=== PATIENT | female | born 1990 | race Asian ===

== ENCOUNTER 2016-07-21 18:20 | Emergency (ER) | payer MEDICAID, OTHER ==
[~2016-07-21] VITALS: Ht 152.4 cm; Wt 42.2 kg
[~2016-07-21 18:20] MED LIST: ESOM20CA PO
[2016-07-21 18:26] VITALS: Ht 152.4 cm; Wt 42.2 kg
[2016-07-21] MEDS ORDERED: KETOROLAC 30 MG INJ IV STA (19:39)
[2016-07-21] MEDS ORDERED: ONDANSETRON 4 MG INJ IV STA (19:39)
[2016-07-21] MEDS ORDERED: SOD CHLORIDE 0.9% 1,000 ML IV STA (19:39)
[2016-07-21 19:53] LABS: ADD UMIC YES; URINE BILIRUBIN (Dip) NEGATIVE (NEGATIVE); URINE BLOOD (Dip) NEGATIVE (NEGATIVE); URINE COLOR LT. YELLOW (YELLOW); URINE GLUCOSE (Dip) NEGATIVE (NEGATIVE); URINE KETONES (Dip) NEGATIVE (NEGATIVE); URINE LEUKOCYTE ESTERASE (Dip) 1+ (NEGATIVE); URINE NITRITE (Dip) POSITIVE (NEGATIVE); URINE TOTAL PROTEIN (Dip) NEGATIVE (NEGATIVE); URINE UROBILINOGEN (Dip) 0.2 E.U./dL (0.1-1.0)
[2016-07-21 20:04] LABS: ADD SCAN DIFF NO
[2016-07-21 20:10] LABS: BASOPHILS % 0.5 % (0.0-2.0); EOSINOPHILS # 0.2 10^3/ul (0.0-0.5); EOSINOPHILS % 3.3 % (0.0-7.0); HEMATOCRIT 40.6 % (37.0-47.0); HEMOGLOBIN 14.1 g/dl (12.0-16.0); LYMPHOCYTES # 2.2 10^3/ul (0.8-2.9); MEAN CORPUSCULAR HGB CONC 34.7 g/dl (32.0-37.0); MEAN CORPUSCULAR VOLUME 95.1 fl (82.0-101.0); MEAN PLATELET VOLUME 8.6 fl (7.4-10.4); MONOCYTE # 0.5 10^3/ul (0.3-0.9); NEUTROPHIL # 3.4 10^3/ul (1.6-7.5); NEUTROPHILS % 53.9 % (39.0-77.0); PLATELET COUNT 287 10^3/UL (140-415); RED BLOOD COUNT 4.27 10^6/ul (4.20-5.40); RED CELL DISTRIBUTION WIDTH 12.1 % (11.5-14.5); WHITE BLOOD COUNT 6.4 10^3/ul (4.8-10.8)
[2016-07-21 20:21] LABS: BACTERIA,URINE MODERATE; URINE RBCS NONE SEEN /HPF (0)
[2016-07-21 20:29] LABS: ALBUMIN 4.4 g/dl (3.3-4.9); POTASSIUM 3.8 mmol/L (3.5-5.1)
--- NOTE | 2016-07-21 20:30 | RADRPT ---
PROCEDURE: US Abdomen. CLINICAL INDICATION: Abdominal pain. TECHNIQUE: Multiple real-time images were acquired of the patient's right upper quadrant utilizing a high resolution transducer. The images were reviewed on a high-resolution PACS workstation. COMPARISON: 04/16/2015 FINDINGS: The liver demonstrates normal echogenicity and size and no focal lesions are seen. The liver measure s 14.3 cm in size. No gallstones are identified within the gallbladder. There is no pericholecystic fluid. The gallbladder wall measures 1.4 mm in size. No intrahepatic biliary dilatation is seen. The common bile duct measures 3 mm in maximal dimension. The visualized portions of the pancreas ar e unremarkable. No free fluid is identified. The right kidney is of normal size, and demonstrate normal echogenicity and morphology. The right k idney measures 10.2 cm. There are is no dilatation of the right collecting system. There are no pe rinephric fluid collections. There are no areas of increased echogenicity to suggest nephrolithiasi s. IMPRESSION: Unremarkable right upper quadrant ultrasound. RPTAT: HPNM Physician Alcides Date Time Electronically viewed and signed by Physician Alcides on 07/21/2016 20:30 /
[2016-07-21 20:31] LABS: ALBUMIN/GLOBULIN RATIO 1.29; BILIRUBIN,INDIRECT 0.3 mg/dl (0-1.1); BILIRUBIN,TOTAL 0.3 mg/dl (0.2-1.3); CREATININE 0.69 mg/dl (0.44-1.00); TOTAL PROTEIN 7.8 g/dl (6.1-8.1)
[2016-07-21 20:32] LABS: CALCIUM 9.7 mg/dl (8.4-10.2)
[2016-07-21] MEDS ORDERED: NITR-58 PO (20:46)
[2016-07-21] MEDS ORDERED: ACET500C5 PO (20:47)
--- NOTE | 2016-07-21 21:01 | ERD ---
ER Documentation Chief Complaint Date/Time DATE: 07/21/16 TIME: 20:54 Chief Complaint mid upper abd pain since 4pm +nausea. states was here last week no rx. HPI Patient is a 25-year-old female who presents emergency department with mid upper abdominal pain since 4 PM today. Patient states pain is primarily in the epigastric region and radiates to her right upper quadrant. Patient states her current pain level is a 7 out of 10. Patient describes the pain to be episodic in nature and pressure-like. Patient states she had 2 episodes of nonbloody nonbilious vomiting. Patient denies any diarrhea. Patient denies any fever, chills, chest pain, shortness of breath, pain with urination or hematuria. Patient states her last menstrual period was on 07/16/2016. ROS All systems reviewed and are negative except as per history of present illness. Medications Home Meds Active Scripts Acetaminophen* (Tylophen*) 500 Mg Capsule, 1 CAP PO Q6H Y for PAIN AND OR ELEVATED TEMP, #20 CAP Prov:SHEYLA OLIVAREZ PA-C 07/21/16 Nitrofurantoin Monohyd Macrocr* (Macrobid*) 100 Mg Capsr, 100 MG PO BID for 5 Days, CAP Prov:SHEYLA OLIVAREZ PA-C 07/21/16 Esomeprazole Mag Trihydrate (Nexium) 20 Mg Capsule., 20 MG PO DAILY, #14 CAP Prov:SHANNAN URBAN MD 04/16/15 Allergies Allergies: Coded Allergies: No Known Allergy (Unverified , 07/21/16) PMhx/Soc Medical and Surgical Hx: pt denies Medical Hx, pt denies Surgical Hx Hx Alcohol Use: No Hx Substance Use: No Hx Tobacco Use: No FmHx Family History: No diabetes Physical Exam Vitals Vital Signs Date Time Temp Pulse Resp B/P Pulse Ox O2 Delivery O2 Flow Rate FiO2 07/21/16 21:57 98.6 57 16 112/79 99 07/21/16 18:26 98.6 71 18 120/80 99 Physical Exam GENERAL: Well-developed, well-nourished female. Appears in no acute distress. HEAD: Normocephalic, atraumatic. EYES: Pupils are equally reactive bilaterally. EOMs grossly intact. No conjunctival erythema. ENT: Moist mucous membranes. No uvula deviation. No kissing tonsils. NECK: Supple. No meningismus. Normal range of motion of the neck. LUNG: Clear to auscultation bilaterally. No rhonchi, wheezing, rales or coarse breath sounds. HEART: Regular rate and rhythm. No murmurs, rubs or gallops. ABDOMEN: No scars, ecchymosis or rashes noted. Soft, and nondistended. Tender to palpation in the epigastric and right upper quadrant. Positive bowel sounds in all four quadrants. No rebound tenderness, no guarding. (-) McBurney's point tenderness. No CVA tenderness. BACK: No midline tenderness. EXTREMITIES: Equal pulses bilaterally. No peripheral clubbing, cyanosis or edema. No unilateral leg swelling. NEUROLOGIC: Alert and oriented. Moving all four extremities without any difficulty. Normal speech. Steady gait. SKIN: Normal color. Warm and dry. No rashes or lesions. Result Diagram: 07/21/16 1950 07/21/16 [facility] Results 24 hrs Laboratory Tests Test 07/21/16 19:40 07/21/16 19:50 Urine Amorphous Urates OCCASIONAL Urine Bacteria MODERATE Urine Bilirubin NEGATIVE Urine Clarity SLIGHTLY CLOUDY Urine Color LT. YELLOW Urine Epithelial Cells OCCASIONAL Urine Glucose NEGATIVE% Urine Hemoglobin NEGATIVE Urine Ketones NEGATIVE Urine Leukocyte Esterase 1+ Urine Microscopic RBC NONE SEEN/HPF Urine Microscopic WBC 2-5/HPF Urine Nitrite POSITIVE Urine Specific [place] 1.010 Urine Total Protein NEGATIVE Urine Urobilinogen 0.2 E.U./dL Urine pH 7.0 Alanine Aminotransferase (ALT/SGPT) 43IU/L Albumin 4.4g/dl Albumin/Globulin Ratio 1.29 Alkaline Phosphatase 53IU/L Anion Gap 21 Aspartate Amino Transf (AST/SGOT) 30IU/L Basophils # 0.010^3/ul Basophils % 0.5% Blood Urea Nitrogen 11mg/dl Calcium Level 9.7mg/dl Carbon Dioxide Level 28mmol/L Chloride Level 101mmol/L Creatinine 0.69mg/dl Direct Bilirubin 0.00mg/dl Eosinophils # 0.210^3/ul Eosinophils % 3.3% Globulin 3.40g/dl Glucose Level 92mg/dl Hematocrit 40.6% Hemoglobin 14.1g/dl Indirect Bilirubin 0.3mg/dl Lipase 116U/L Lymphocytes # 2.210^3/ul Lymphocytes % 34.0% Mean Corpuscular Hemoglobin 33.0pg Mean Corpuscular Hemoglobin Concent 34.7g/dl Mean Corpuscular Volume 95.1fl Mean Platelet Volume 8.6fl Monocytes # 0.510^3/ul Monocytes % 8.0% Neutrophils # 3.410^3/ul Neutrophils % 53.9% Nucleated Red Blood Cells # 0.010^3/ul Nucleated Red Blood Cells % 0.0/100WBC Platelet Count 13526^3/UL Potassium Level 3.8mmol/L Red Blood Count 4.2710^6/ul Red Cell Distribution Width 12.1% Sodium Level 146mmol/L Total Bilirubin 0.3mg/dl Total Protein 7.8g/dl White Blood Count 6.410^3/ul Current Medications Medications (Trade) Dose Ordered Sig/Aisha Route PRN Reason Start Time Stop Time Status Last Admin Dose Admin Sodium Chloride (NS) 1,000 ml @ 1,000 mls/hr Q1H STAT IV 07/21/16 19:39 07/21/16 20:38 DC 07/21/16 19:53 Ondansetron HCl (Zofran Inj) 4 mg ONCE STAT IV 07/21/16 19:39 07/21/16 19:41 DC 07/21/16 19:52 Ketorolac Tromethamine (Toradol) 30 mg ONCE STAT IV 07/21/16 19:39 07/21/16 19:42 DC 07/21/16 19:52 Procedures/MDM ED COURSE: The patient was stable throughout ED course. I kept the patient and/or family informed of laboratory and diagnostic imaging results throughout the ED course. DIAGNOSTIC IMAGING: Read by radiologist. DIAGNOSTIC IMAGING REPORT Patient: TARA LOPEZ : 1990 Age: 25 Sex: F MR #: [id number] DOS: 07/21/16 193 Ordering MD: SHEYLA OLIVAREZ PA-C Location: [facility] Room/Bed: PROCEDURE: US Abdomen. CLINICAL INDICATION: Abdominal pain. TECHNIQUE: Multiple real-time images were acquired of the patient's right upper quadrant utilizing a high resolution transducer. The images were reviewed on a high-resolution PACS workstation. COMPARISON: 04/16/2015 FINDINGS: The liver demonstrates normal echogenicity and size and no focal lesions are seen. The liver measures 14.3 cm in size. No gallstones are identified within the gallbladder. There is no pericholecystic fluid. The gallbladder wall measures 1.4 mm in size. No intrahepatic biliary dilatation is seen. The common bile duct measures 3 mm in maximal dimension. The visualized portions of the pancreas are unremarkable. No free fluid is identified. The right kidney is of normal size, and demonstrate normal echogenicity and morphology. The right kidney measures 10.2 cm. There are is no dilatation of the right collecting system. There are no perinephric fluid collections. There are no areas of increased echogenicity to suggest nephrolithiasis. IMPRESSION: Unremarkable right upper quadrant ultrasound. RPTAT: HPNM Physician Alcides Date Time Electronically viewed and signed by Seamus Ontiveros Physician on 07/21/2016 20 :30 / CC: SHEYLA OLIVAREZ PA-C MEDICATIONS GIVEN: IV fluids, morphine, Zofran Patient tolerated medication well with no adverse reactions. Patient reported improvement in pain. MEDICAL DECISION MAKING: This is a 25-year-old female who presents with epigastric and right upper quadrant pain since 4 PM today. Vital signs were reviewed. Patient is afebrile. CBC showed no evidence of systemic infection or severe anemia. CMP showed no evidence of electrolyte abnormalities, severe acidosis, alkalosis, renal failure , or liver disease. Lipase showed no evidence of acute pancreatitis. UA showed positive nitrates positive leukocyte esterase, positive microscopic WBCs. Urine test was negative. RUQ ultrasound was unremarkable. Upon reexamination, patient reported improvement in pain. At this time, patient's presentation is most consistent with epigastric pain of unknown etiology and UTI.. I have a much lower clinical concern for acute coronary syndrome, AAA, mesenteric ischemia, lower lobe pneumonia, DKA, bowel perforation, obstruction, cholecystitis, choledocholithiasis, ascending cholangitis, pancreatitis, nephrolithiasis, appendicitis, , ectopic . Unable to rule out PUD. PRESCRIPTIONS: Macrobid, Tylenol DISCHARGE: At this time, patient is stable for discharge and outpatient management. Patient provided with a copy of all labs and imaging performed today. I have instructed the patient to follow-up with his/her primary care physician in 1-2 days. I have advised the patient that she may need to follow up with GI specialist if she continues to have pain. I have instructed the patient to promptly return to the ER at any time for any new or worsening symptoms including increased pain, nausea, vomiting, diarrhea, fever, weakness or LOC. The patient and/or family expressed understanding of and agreement with this plan. All questions were answered. Home care instructions were provided. Departure Diagnosis: Primary Impression: UTI (urinary tract infection) Urinary tract infection type: site unspecified Hematuria presence: without hematuria Qualified Code: N39.0 - Urinary tract infection without hematuria, site unspecified Additional Impression: Abdominal pain Abdominal location: right upper quadrant Qualified Code: R10.11 - Right upper quadrant abdominal pain Condition: Stable Patient Instructions: Abdominal Pain, Understanding Urinary Tract Infections ( UTIs) Referrals: [facility] YOU HAVE RECEIVED A MEDICAL SCREENING EXAM AND THE RESULTS INDICATE THAT YOU DO NOT HAVE A CONDITION THAT REQUIRES URGENT TREATMENT IN THE EMERGENCY DEPARTMENT. FURTHER EVALUATION AND TREATMENT OF YOUR CONDITION CAN WAIT UNTIL YOU ARE SEEN IN YOUR DOCTORS OFFICE WITHIN THE NEXT 1-2 DAYS. IT IS YOUR RESPONSIBILITY TO MAKE AN APPOINTMENT FOR FOLOW-UP CARE. IF YOU HAVE A PRIMARY DOCTOR --you should call your primary doctor and schedule an appointment IF YOU DO NOT HAVE A PRIMARY DOCTOR YOU CAN CALL OUR PHYSICIAN REFERRAL HOTLINE AT IF YOU CAN NOT AFFORD TO SEE A PHYSICIAN YOU CAN CHOSE FROM THE FOLLOWING [facility] [address] [facility]. [facility] [address] [facility]. [facility] [address] [facility] [address] [facility]. [facility] [address] [facility]. [facility]. [address] [facility]. [facility] YOU HAVE RECEIVED A MEDICAL SCREENING EXAM AND THE RESULTS INDICATE THAT YOU DO NOT HAVE A CONDITION THAT REQUIRES URGENT TREATMENT IN THE EMERGENCY DEPARTMENT. FURTHER EVALUATION AND TREATMENT OF YOUR CONDITION CAN WAIT UNTIL YOU ARE SEEN IN YOUR DOCTORS OFFICE WITHIN THE NEXT 1-2 DAYS. IT IS YOUR RESPONSIBILITY TO MAKE AN APPOINTMENT FOR FOLOW-UP CARE. IF YOU HAVE A PRIMARY DOCTOR --you should call your primary doctor and schedule and appointment IF YOU DO NOT HAVE A PRIMARY DOCTOR YOU CAN CALL OUR PHYSICIAN REFERRAL HOTLINE AT . IF YOU CAN NOT AFFORD TO SEE A PHYSICIAN YOU CAN CHOSE FROM THE FOLLOWING [facility] INSTITUTIONS: [facility] [address] [place] [address] [facility] [address] [place] [address] [facility] [address] [place] [address] Additional Instructions: Abdominal pain recheck advised in 8 hours if pain persists. Patient was advised to return sooner for any new or worsening pain, nausea, vomiting, fever , chills. Return immediately if you have right lower quadrant pain. Call your primary care doctor TOMORROW for an appointment during the next 1-2 days.See the doctor sooner or return here if your condition worsens before your appointment time. SHEYLA OLIVAREZ PA-C Jul 21, 2016 21:01
[2016-07-21 21:57] VITALS: BP 112/79; PULSE 57; RESP 16; TEMP 98.6
== END 2016-07-21 21:58 | disposition home or self-care (01) ==
LOC: FTE 18:20
DX: N39.0 Urinary tract infection, site not specified (principal); R11.2 Nausea with vomiting, unspecified
CPT/HCPCS: 36415; 76705; 80053; 81001; 83690; 85025; 96361; 96374; 96375; 99285; J1885; J2405; J7030; 81003

== ENCOUNTER 2017-04-01 13:49 | Emergency (ER) | payer MEDICAID, OTHER ==
[~2017-04-01] VITALS: Ht 152.4 cm; Wt 44.0 kg
[~2017-04-01 13:49] MED LIST changes: +ACET500C5 PO; +NITR-58 PO
[2017-04-01 13:53] VITALS: Ht 152.4 cm; Wt 44.0 kg
[2017-04-01] MEDS ORDERED: KETOROLAC 30 MG INJ IM STA (14:43)
--- NOTE | 2017-04-01 16:18 | RADRPT ---
PROCEDURE: XR Hand. CLINICAL INDICATION: Hand pain. TECHNIQUE: Three views of the left hand were obtained. COMPARISON: No prior studies are available for comparison. FINDINGS: No acute fracture or dislocation is noted. Bone mineralization is normal. No significant soft tissue swelling is seen. IMPRESSION: 1. No acute fracture or dislocation is seen. RPTAT: HH .Hari Queen MD, Date Time Electronically viewed and signed by .Hari Queen MD, on 04/01/2017 16:18 .N/
[2017-04-01] MEDS ORDERED: IBUP400T22 PO (17:13)
--- NOTE | 2017-04-01 18:25 | ERD ---
ER Documentation Chief Complaint Chief Complaint LEFT HAND PAIN, BRACE IN PLACE, NO DEFORMITY OR SWELLING HPI 26-year-old female patient with no significant past medical history is a left- handed individual presents to the ED complaining of left hand pain that started intermittently for 1 week. 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 Reports that the base of her left thumb is an sharp pain and rates it a 8 out of 10. Denies any direct trauma or injury. Denies any fever, chills, loss of sensation, loss of range of motion, nausea, vomiting. ROS All systems reviewed and are negative except as per history of present illness. Medications Home Meds Active Scripts Ibuprofen* (Motrin*) 400 Mg Tab, 400 MG PO Q6, #30 TAB Prov:CARSON SOLIS PA-C 04/01/17 Acetaminophen* (Tylophen*) 500 Mg Capsule, 1 CAP PO Q6H Y for PAIN AND OR ELEVATED TEMP, #20 CAP Prov:SHEYLA OLIVAREZ PA-C 07/21/16 Nitrofurantoin Monohyd Macrocr* (Macrobid*) 100 Mg Capsr, 100 MG PO BID for 5 Days, CAP Prov:SHEYLA OLIVAREZ PA-C 07/21/16 Esomeprazole Mag Trihydrate (Nexium) 20 Mg Capsule.dr, 20 MG PO DAILY, #14 CAP Prov:SHANNAN URBAN MD 04/16/15 Allergies Allergies: Coded Allergies: No Known Allergy (Unverified , 04/01/17) PMhx/Soc Medical and Surgical Hx: pt denies Medical Hx, pt denies Surgical Hx Hx Alcohol Use: No Hx Substance Use: No Hx Tobacco Use: No Smoking Status: Never smoker Physical Exam Vitals Vital Signs Date Time Temp Pulse Resp B/P Pulse Ox O2 Delivery O2 Flow Rate FiO2 04/01/17 13:53 97.7 83 16 121/68 97 Physical Exam Const: [id number], well-nourished. In no acute distress. Head: Atraumatic, normocephalic Eyes: Normal Conjunctiva without injection ENT: Normal external ear, nose and mouth. Neck: Full range of motion. No meningismus. Resp: Clear to auscultation bilaterally. No wheezing, rhonchi, rales, or crackles. No accessory muscle use. No retractions. Cardio: Regular rate and rhythm, no murmurs Skin: No petechiae or rashes Back: No midline tenderness. No CVA tenderness. Ext: No cyanosis, or edema. Cap refill less than 2 seconds. Distal pulses intact bilaterally. Tenderness palpation of the left thumb space and left snuffbox. Full range of motion of the DIP, PIP, MCP joints bilaterally. Neur: Awake and alert. Normal gait and coordination. Muscle strength 5/5. Sensation intact bilaterally. Psych: Normal Mood and Affect Results 24 hrs Current Medications Medications (Trade) Dose Ordered Sig/Aisha Route PRN Reason Start Time Stop Time Status Last Admin Dose Admin Ketorolac Tromethamine (Toradol) 30 mg ONCE STAT IM 04/01/17 14:43 04/01/17 14:46 DC 04/01/17 15:31 Procedures/MDM This is 26-year-old female patient with no significant past medical history presents to the ED complaining of left hand pain. Patient is afebrile and nontoxic-appearing. Patient has normal vital signs. PROCEDURE: XR Hand. CLINICAL INDICATION: Hand pain. TECHNIQUE: Three views of the left hand were obtained. COMPARISON: No prior studies are available for comparison. FINDINGS: No acute fracture or dislocation is noted. Bone mineralization is normal. No significant soft tissue swelling is seen. IMPRESSION: 1. No acute fracture or dislocation is seen. Patient is placed in a left thumb spica splint. Splint Assessment: Neurovascularly intact pre and post splint placement with good fit. Differentials include hand sprain however since patient has left snuffbox tenderness, a scaphoid fracture cannot be ruled out. Patient's extremity symptoms have stabilized while they have been evaluated in the department and are appropriate for outpatient follow up. No evidence of fractures, dislocations , compartment syndrome, neurologic injury, vascular injury, open joint, open fracture, tendon laceration, septic arthritis, osteomyelitis, DVT, foreign body , or other emergent conditions. Discharge medications: Ibuprofen Follow up with primary care physician in 1-2 days for a referral to see an orthopedic physician. Instructed patient to return to the ED sooner for any worsening symptoms. Patient's questions were answered. Patient understood and agreed with discharge plan. Patient discharged stable. Departure Diagnosis: Primary Impression: Pain of hand Laterality: left Qualified Code: M79.642 - Pain of left hand Condition: Stable Patient Instructions: Sprain Hand Referrals: [facility] YOU HAVE RECEIVED A MEDICAL SCREENING EXAM AND THE RESULTS INDICATE THAT YOU DO NOT HAVE A CONDITION THAT REQUIRES URGENT TREATMENT IN THE EMERGENCY DEPARTMENT. FURTHER EVALUATION AND TREATMENT OF YOUR CONDITION CAN WAIT UNTIL YOU ARE SEEN IN YOUR DOCTORS OFFICE WITHIN THE NEXT 1-2 DAYS. IT IS YOUR RESPONSIBILITY TO MAKE AN APPOINTMENT FOR FOLOW-UP CARE. IF YOU HAVE A PRIMARY DOCTOR --you should call your primary doctor and schedule an appointment IF YOU DO NOT HAVE A PRIMARY DOCTOR YOU CAN CALL OUR PHYSICIAN REFERRAL HOTLINE AT IF YOU CAN NOT AFFORD TO SEE A PHYSICIAN YOU CAN CHOSE FROM THE FOLLOWING [facility] [address] [facility] [address] [facility] [address] [facility] [address] [facility] [facility] [address] [facility] [facility]. [address] [facility]. [facility] YOU HAVE RECEIVED A MEDICAL SCREENING EXAM AND THE RESULTS INDICATE THAT YOU DO NOT HAVE A CONDITION THAT REQUIRES URGENT TREATMENT IN THE EMERGENCY DEPARTMENT. FURTHER EVALUATION AND TREATMENT OF YOUR CONDITION CAN WAIT UNTIL YOU ARE SEEN IN YOUR DOCTORS OFFICE WITHIN THE NEXT 1-2 DAYS. IT IS YOUR RESPONSIBILITY TO MAKE AN APPOINTMENT FOR FOLOW-UP CARE. IF YOU HAVE A PRIMARY DOCTOR --you should call your primary doctor and schedule and appointment IF YOU DO NOT HAVE A PRIMARY DOCTOR YOU CAN CALL OUR PHYSICIAN REFERRAL HOTLINE AT . IF YOU CAN NOT AFFORD TO SEE A PHYSICIAN YOU CAN CHOSE FROM THE FOLLOWING [facility] INSTITUTIONS: [facility] [address] [place] [address] [facility] [address] [place] [address] [facility] [address] [place] [address] [facility] Urgent Care 7 a.m.- 11 p.m. Every Day of the Week NO APPOINTMENT OR AUTHORIZATION NEEDED [facility] Hours: Mon-Fri 9:00 AM - 5:00 PM Additional Instructions: Call your primary care doctor TOMORROW for an appointment during the next 2-3 days for a referral to see an orthopedic physician for further evaluation and treatment.See the doctor sooner or return here if your condition worsens before your appointment time. CARSON SOLIS PA-C Apr 01, 2017 18:25
== END 2017-04-01 17:31 | disposition home or self-care (01) ==
LOC: FTE 13:49
DX: M79.642 Pain in left hand (principal)
CPT/HCPCS: 29125; 73130; J1885; 96372

== ENCOUNTER 2017-08-25 22:13 | Emergency (ER) | END 2017-08-26 03:03 | disposition left against medical advice (07) ==

== ENCOUNTER 2017-11-12 16:25 | Emergency (ER) | END 2017-11-12 18:45 | disposition home or self-care (01) ==